=== PATIENT | female | born 1955 | race Caucasian/White ===

== ENCOUNTER 2018-07-16 14:03 | Emergency (ER) | payer OTHER ==
[~2018-07-16] VITALS: Ht 167.6 cm; Wt 74.8 kg
--- NOTE | 2018-07-16 15:00 | Emergency Room Report ---
History of Present Illness General Chief Complaint: Lower Extremity Injury Source: Patient Present Illness HPI Patient states that about 5 weeks ago she fell at work. She states she fell on her left knee. She states that since that time she has done ice and rest with the knee. She states that she notices intermittent pain in the knee. Especially if she does physical activities as such yoga or dancing. She is also noted over the past week that there is some swelling behind her left knee. She denies warmth or redness. She denies fever or chills. She has no other injuries or complaints. Allergies: Coded Allergies: No Known Allergies (Unverified , 07/16/18) Patient History Past Medical History: none Past Surgical History: none Social History: Denies: smoking, alcohol use, drug use Last Menstrual Period: menopause Reviewed Nursing Documentation: PMH: Agreed; PSxH: Agreed Nursing Documentation-PMH Past Medical History: No Stated History Review of Systems All Other Systems: negative except mentioned in HPI Physical Exam Vital Signs Date Time Temp Pulse Resp B/P (MAP) Pulse Ox O2 Delivery O2 Flow Rate FiO2 07/16/18 14:06 97.8 70 18 119/80 97 Room Air 97.9 Sp02 EP Interpretation: reviewed, normal General Appearance: no apparent distress, alert, GCS 15, non-toxic Head: normocephalic, atraumatic Eyes: bilateral eye normal inspection, bilateral eye PERRL ENT: hearing grossly normal, normal pharynx, no angioedema, normal voice Neck: normal inspection, full range of motion Respiratory: no respiratory distress, no retraction, no accessory muscle use, speaking full sentences Gastrointestinal: normal inspection Rectal: deferred Musculoskeletal: back normal, gait/station normal, normal range of motion, other - Mild ttp with ROM of L. knee. No erythema or warmth. +swelling in popliteal fossa. Neurologic: alert, oriented x3, responsive, motor strength/tone normal, sensory intact, speech normal Psychiatric: judgement/insight normal, memory normal, mood/affect normal, no suicidal/homicidal ideation Skin: normal color, no rash, warm/dry, well hydrated Medical Decision Making Diagnostic Impression: Primary Impression: Randall's cyst of knee Additional Impression: Fall ER Course This patient is status post a fall onto her left knee. X-rays of the left knee are unremarkable for fracture. The patient does have findings of physical exam consistent with a Randall's cyst. I do not suspect septic joint based on physical exam. I did not pursue this any further. His given an Fredo wrap for comfort. She is instructed to follow-up with the workman's comp clinic. At this time, I did not identify an emergency medical condition. The patient is given close return precautions and follow-up instructions. Other X-Ray Diagnostic Results Other X-Ray Diagnostic Results : X-Ray ordered: L. knee # of Views/Limited Vs Complete: Complete Indication: Swelling EP Interpretation: Yes Interpretation: no fractures Impression: No acute disease Electronically Signed by: Cha Last Vital Signs Date Time Temp Pulse Resp B/P (MAP) Pulse Ox O2 Delivery O2 Flow Rate FiO2 07/16/18 14:06 97.8 70 18 119/80 97 Room Air 97.9 Disposition: HOME, SELF-CARE Condition: Improved Referrals: NOT CHOSEN MARCELLO/,REFERRING (PCP) Bessy Marrero DO Jul 16, 2018 15:00
[2018-07-16 15:05] VITALS: BP 119/80
--- NOTE | 2018-07-16 16:01 | Diagnostic Imaging Report ---
Indications: Knee pain, 5 week status post fall Technique: Three views of the left knee Comparison: None Findings: No acute fractures. No dislocations. Joint spaces are preserved. No radiopaque foreign body. Normal mineralization. Impression: No acute process
== END 2018-07-16 15:05 | disposition home or self-care (01) ==
LOC: EMR 14:45
DX: M71.22 Synovial cyst of popliteal space [Baker], left knee (principal)
CPT/HCPCS: 99283